=== PATIENT | male | born 1965 | race Two or more races ===

== ENCOUNTER 2025-03-18 08:43 | Outpatient (CLI) | payer BC, MEDICAID ==
[~2025-03-18] VITALS: Ht 172.7 cm; Wt 107.5 kg
[2025-03-18] MEDS: REGADENOSON 0.4 MG/5 ML SYRG IV ONE ×2 (11:25)
--- NOTE | 2025-03-19 17:20 | DVHSR ---
APPROVED REPORT Exam: Nuclear Stress Test Indication: CAD Stress Tech: Katherine Craig Ht: 5 ft 8 in Wt: 237 lbs BSA: 2.20 m2 HR: 61 bpm BP: 125/64 mmHg BMI: 36.03 Rhythm: NSR with inverted t wave and BBB Medical History Medical History: smoker, DM, HTN, HLD Allergies: PCN Stress Test Details Stress Test: Pharmacologic stress testing performed using 0.4 mg of regadenoson per 5 mL given IV ov er 10 seconds. Reason for pharmacologic stress test: CAD. HR Resting HR: 61 bpmMax Heart Rate (APMHR): 163.046783 bpm Max HR Achieved: 98 bpmTarget HR (85% APMHR): 138.758473 bpm % of APMHR: 60.12 Recovery HR: 74 bpm BP Resting BP: 125/64 mmHg Recovery BP: 129/70 mmHg ECG Resting ECG: NSR with inverted p wave and BBB Clinical Reason for Termination: Completed protocol Nurse Comments Uneventful stress test performed per protocol. Patient tolerated well and was taken back to Nuclear [facility] via wheel chair in stable condition by tech. Stress ECG Conclusion lvef 62% normal perfusoin scan NM EXAM: Myocardial Perfusion REST/STRESS Imaging Protocol: Rest Tc-99m/Stress Tc-99m 1 day Resting Data Rest SPECT myocardial perfusion imaging was performed in supine position 60 minutes following the int ravenous injection of 12.4 mCi of Tc-99m Sestamibi. Time of rest injection: 10:00 Date: 03/18/2025 Time of rest imagin:00 Date: 03/18/2025 Administration Route: IV Administration Site: Left Arm Pharmacologic Stress Pharmacologic stress test was performed by injecting Regadenoson 0.4 mg IV push followed by the intra venous injection of 29.3 mCi of Tc-99m Sestamibi. Time of stress injection: 11:30 Date: 03/18/2025 Time of stress imagin:30 Date: 03/18/2025 Administration Route: IV Administration Site: Left Arm Gated Stress SPECT was performed 60 minutes after stress injection. The images were gated to evaluate regional wall motion and calculate left ventricular ejection fracti on. Stress only was performed in the Supine position. Nuclear Conclusion Nuclear Findings: negative for ischemia lvef 62% normal perfusoin scan
== END 2025-03-18 17:00 | disposition home or self-care (01) ==
LOC: XYW 08:43
PROVIDERS: ATTEND Internal Medicine
DX: I25.10 Atherosclerotic heart disease of native coronary artery without angina pectoris (principal); I63.9 Cerebral infarction, unspecified; I10 Essential (primary) hypertension; E78.5 Hyperlipidemia, unspecified; E11.9 Type 2 diabetes mellitus without complications; E78.00 Pure hypercholesterolemia, unspecified; M25.471 Effusion, right ankle; Z68.35 Body mass index [BMI] 35.0-35.9, adult
CPT/HCPCS: 78452; 93017; A9500; J2785